=== PATIENT | female | born 1985 | race Two or more races ===

== ENCOUNTER 2025-08-22 15:45 | Emergency (ER) | payer OTHER ==
[~2025-08-22] VITALS: Ht 149.9 cm; Wt 72.6 kg
[2025-08-22] MEDS ORDERED: ZOLOFT20 MG/1 ML PO (16:23)
[2025-08-22] MEDS ORDERED: ADDERALL 10 MG10 MG (16:23)
[2025-08-22] MEDS ORDERED: WELLBUTRIN XL300 MG PO (17:10)
== END 2025-08-22 17:22 | disposition home or self-care (01) ==
LOC: ER 15:45
DX: F90.9 Attention-deficit hyperactivity disorder, unspecified type (principal); F41.9 Anxiety disorder, unspecified